=== PATIENT | male | born 1935 | race Caucasian/White ===

== ENCOUNTER 2018-12-10 10:05 | Day surgery (SDC) | payer MEDICARE, SELFPAY ==
--- NOTE | 2018-12-09 18:15 | POEE_ITS ---
History of Present Illness Chief Complaint: Progressive decreased vision, right eye Narrative: The patient is a 83-year-old male with history of amblyopia of the right eye. He has exudative maculopathy of the left eye. Corrected visual acuity measures 20/200 in the right eye in the presence of significant nuclear cataract. The option of cataract surgery was offered to the patient, including that postoperative visual acuity will be limited by the presence of her pre- existing amblyopia. Visual acuity had been as good as 20/70 in the right eye. He desired to proceed with cataract surgery in the right eye, understanding that postoperative visual acuity will be limited by his pre-existing amblyopia. NOTE: The Chief Complaint, HPI, Past Medical History, Past Surgical History, Family History, Social History, Medications, and complete Ophthalmic Exam with detailed Assessment and Plan have already been documented in the patient's outpatient ophthalmic record and are not covered again in detail here. PFSH Medical History Aortic aneurysm (Chronic) Cataract (Chronic) Coronary artery disease (Chronic) Glaucoma (Chronic) High cholesterol (Chronic) Hypertension (Chronic) Myocardial infarction (Chronic) Surgical History History of coronary artery stent placement (Chronic) History of tonsillectomy (Chronic) Social History Smoking/Tobacco Use Status: Former Tobacco Use Alcohol Intake: never Drug use: Never Substance use type: does not use Details: Quit smoking 2007 Do you feel safe at home: Yes Meds Home Medications Medication Instructions Recorded Confirmed Type losartan 100 mg PO DAILY 01/13/14 12/04/18 History metoprolol succinate 100 mg PO DAILY 01/13/14 12/04/18 History amlodipine 5 mg PO DAILY 09/19/18 12/04/18 History aspirin 81 mg PO DAILY 09/19/18 12/04/18 History atorvastatin 20 mg PO QHS 09/19/18 12/04/18 History nitroglycerin [Nitrostat] 0.4 mg SUBLINGUAL Q5-15M PRN 09/19/18 12/04/18 History vit C,Q-Nc-exwge-lutein-zeaxan 1 tab PO BID 09/19/18 12/04/18 History Allergies Allergy/AdvReac Type Severity Reaction Status Date / Time Iodinated Contrast- Oral and AdvReac Intermediate Dizzy, Verified 12/04/18 14:05 IV Dye stomach burning Sulfa (Sulfonamide AdvReac Unknown Verified 12/04/18 14:05 Antibiotics) Exam OCULAR EXAM:: Most recent ocular examination is significant for corrected visual acuity of 2o/300 OD, 20/60 OS. Extraocular motility is normal. He is noted to have deep orbits. Intraocular pressure is 17 OD, 18 OS. Pupils dilated to 6.5 mm. 3+ brunescent nuclear cataracts are present OU. Dilated funduscopic examination shows disc cupping of 0.45 OU with normal vessels. RPE changes are present in both maculas. Peripheral retina and vitreous is normal OU. BRIGHTNESS ACUITY TESTING (BAT):: Brightness acuity testing of the right eye office is 20/300. On low is 20/400. On medium and high is less than 20/400. Assessment and Plan (1) Nuclear sclerotic cataract of right eye: Current visit: No Status: Acute Assessment: Visually significant cataract, right eye. Plan: Cataract extraction with intraocular lens implantation, right eye Note: NOTE:: The details of the planned surgery, including the risks, indications,limitations,expectations,outcome and possible complications were explained to the patient. The patient understands the complications including, but not limited to: infection, hemorrhage, posterior dislocation of the lens or nuclear fragments which may require the intervention of a vitreoretinal surgeon, possible loss of the eye, or from anesthetic complications. The patient has been made aware of the option of not having surgery, that vision following surgery may not be equal to that prior to surgery, and that the planned surgery may not achieve the intended results. Following this discussion, which the patient appeared to understand, the patient wishes to proceed with cataract surgery with lens implantation of the affected eye to improve and maximize vision.
[2018-12-10 10:31] VITALS: BP 128/69; PULSE 68; RESP 16; TEMP 36.2; O2SAT 97
[2018-12-10] MEDS: Tetracaine 0.5% 4 ML BTL OD ×5 (10:36→11:58)
[2018-12-10] MEDS: Tropicam./Phenyleph. (1/2.5%) 5 ML BTL OD ×3 (10:37→10:43)
[2018-12-10] MEDS: Povidone-Iodine Ophth 30 ML BTL ×2 (11:46→12:14)
[2018-12-10] MEDS: Lidocaine 2% Jelly 6 ML SYR (11:46)
[2018-12-10] MEDS: Balanced Salt Soln.-PLUS 500 ML BAG (11:52)
[2018-12-10] MEDS: Duovisc Viscoelastic System EACH 1 EACH (11:52)
[2018-12-10] MEDS: Lidocaine 1% Pres-Free 5 ML VIAL (11:52)
--- NOTE | 2018-12-10 12:19 | W.PM.DSUDISC ---
Discharge Plan Disposition Patient Disposition: HOME Condition: Stable Discharge Details Attending Provider: Jeremy Robles Primary Care Provider: Racheal David Home Meds and New Rx's Prescriptions: No Action metoprolol succinate 100 MG tablet extended release 24 hr 100 mg PO DAILY RF: 0 losartan 100 MG tablet 100 mg PO DAILY RF: 0 atorvastatin 20 mg Tablet 20 mg PO QHS RF: 0 amlodipine 5 mg Tablet 5 mg PO DAILY RF: 0 aspirin 81 mg Tablet,Delayed Release (Dr/Ec) 81 mg PO DAILY RF: 0 nitroglycerin [Nitrostat] 0.4 mg Tablet, Sublingual 0.4 mg SUBLINGUAL Q5-15M PRNRF: 0 vit C,K-Nn-rftvk-lutein-zeaxan [phone] wr-npzs-dj-mg Capsule 1 tab PO BID RF: 0 Discharge Instructions Stand Alone Forms: Post-op Topical Cataract, Romain Mckoy (DSU) Discharge Orders Discharge Orders: Discharge Order (Routine); Ordered 12/10/18 Ordered By: Jeremy Robles DS: Diagnosis Discharge Diagnosis (1) Nuclear sclerotic cataract of right eye: Status: Resolved
--- NOTE | 2018-12-10 12:21 | W.PM.OP ---
Date of service: 12/10/18 Time of Service: 12:21 Operative Note PRE-OP DIAGNOSIS: Cataract, right eye PROCEDURE: Cataract extraction using phacoemulsification with intraocular lens implant, right eye SURGEON: Jeremy Robles ANESTHESIA: MAC and local (sub-tenon's anesthetic infiltration) ESTIMATED BLOOD LOSS: 0 PATHOLOGY: none sent COMPLICATIONS: None Patient was transported to: same day Patient's condition: stable Implants: [employer] / [employer] Tecnis ZCB00 intraocular lens Indications: Progressive decreased vision due to cataract, right eye Procedure Description: CATARACT SURGERY OPERATIVE REPORT PREOPERATIVE DIAGNOSIS: Nuclear cataract, right eye Amblyopia, right eye POSTOPERATIVE DIAGNOSIS: Same OPERATION: Cataract extraction using phacoemulsification with posterior chamber intraocular lens implant, right eye. IOL: IOL Master Dyer/Model: [employer] / RADHA Tecnis ZCB00 IOL Power: + 28.0 diopters IOL Serial Number: [id number] Optic Diameter: 6.0mm Haptic/Overall Diameter: 13.0mm PHACO INFO: Josh Neokineticsurion Vision System with OZil and Active [employer]uidics Cumulative Dispersed Energy (CDE): 17.18 seconds SURGEON: Jeremy Robles MD, VERN ANESTHESIA: Monitored Anesthesia Care (MAC), with local sub-tenon's anesthetic infiltration COMPLICATIONS: None SPECIMENS: None INDICATIONS FOR PROCEDURE: Patient is an 83-year-old gentleman with history of hyperopic astigmatism of the right eye with amblyopia of the right eye. 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 PROCEDURE: The correct surgical eye was identified and marked as the right eye and the pupil was dilated in the preoperative area using mydriatics and cycloplegics. The dilated pupil size was 6.5 mm. Oral sedation was administered in the form of an Imprimis MKO Melt (midazolam 3mg/ketamine 25mg/ondansetron 2mg). The patient was brought to the operating room where cardiopulmonary monitoring was instituted and surgical time-out was performed, confirming the correct operative eye and IOL power. Topical anesthesia was administered and ophthalmic povidone-iodine 5% was instilled into the conjunctival fornices. Lidocaine gel was applied to the cornea and the darryl-ocular area was prepped with Betadine 10% solution and draped in the usual sterile fashion for intraocular surgery, including an aperture drape. A Tegaderm transparent film dressing was cut in half and used to cover the lashes and lid margins. Care was taken to sequester the lashes and lid margins under the Tegaderm dressing. A lid speculum was placed between the lids of the operative eye and the Rocky-Herbert operating microscope was maneuvered into position. Gwendolyn scissors were then used to make a conjunctival buttonhole approximately 6mm posterior to the limbus in the inferonasal quadrant. Blunt dissection was carried out to expose bare sclera, and a blunt-tipped sub-tenon?s anesthesia cannula was introduced and passed posteriorly along the globe where non-preserved plain lidocaine was injected into posterior sub-Tenon?s space. A sideport knife was used to make a paracentesis port inferiortemporally, and the anterior chamber was filled with Viscoat. A 2.4mm keratome knife was used to create a half-thickness groove at the limbus and then to construct a three-plane near-clear corneal tunnel extending 2.0mm into clear cornea in the superiortemporal position. . A flap was raised on the anterior capsule and capsulorhexis forceps were used to complete a continuous curvilinear capsulorhexis of 5.0 mm. Balanced salt solution was then used to perform cortical cleaving hydrodissection and nuclear hydrodelineation until the lens could be freely rotated within the capsular bag. The lens nucleus was then disassembled and removed within the capsular bag and iris plane using phacoemulsification. Residual cortical material was removed using the I/A handpiece. The posterior capsule was carefully polished to remove as much residual lens epithelial cells as safely possible. The capsular bag was then inflated and the anterior chamber deepened with Provisc. The lens implant described above was inserted into the capsular bag using the RADHA [employer] [employer] Injector. A Kuglen hook was used to dial the IOL into position. Residual viscoelastic was then removed first from posterior to the IOL, then from the anterior chamber using the I/A handpiece. The lens implant was noted to center nicely within the capsular bag. The incisions were stromally hydrated, and the anterior chamber was reformed using BSS. Then 0.4cc of moxifloxacin 1.5mg/ml were injected into the capsular bag and anterior chamber. The incisions were checked with a Weck spear and found to be secure. Several drops of ophthalmic povidone-iodine 5% were then applied to the eye followed by two drops of Imprimis combination prednisolone/gatifloxacin/bromfenac solution. The drapes were removed and a clear plastic protective eye shield was placed over the eye. The patient was then returned to [facility] Day Surgery in stable condition.
[2018-12-10 12:49] VITALS: BP 97/59; PULSE 78; RESP 16; TEMP 36; O2SAT 92
== END 2018-12-10 12:50 | disposition home or self-care (01) ==
PROVIDERS: PCP Internal Medicine Geriatric Medicine; Visit Provider Ophthalmology
PROC: (CPT 66984; principal; 2018-12-10 12:30)
DX: H25.11 Age-related nuclear cataract, right eye (principal); H53.001 Unspecified amblyopia, right eye; I10 Essential (primary) hypertension
CPT/HCPCS: 66984; V2632

== ENCOUNTER 2021-02-23 09:39 | Emergency (ER) | payer MEDICARE, SELFPAY ==
[2021-02-23] VITALS (28 sets, daily range): BP systolic 106–184; BP diastolic 49–100; PULSE 73–102; RESP 16; TEMP 36.5; O2SAT 93–99
--- NOTE | 2021-02-23 09:59 | W.ED.GENAD ---
Discharge Plan Disposition Patient Disposition: [facility] Condition: Stable Discharge Details Chief Complaint: Urinary Clinical Impression: Gross hematuria Primary Care Provider: Racheal David ED Provider: Eduard Alejandro Home Meds and New Rx's Prescriptions: No Action metoprolol succinate 100 MG tablet extended release 24 hr 100 mg PO DAILY RF: 0 losartan 100 MG tablet 100 mg PO DAILY RF: 0 atorvastatin 20 mg Tablet 20 mg PO QHS RF: 0 amlodipine 5 mg Tablet 5 mg PO DAILY RF: 0 aspirin 81 mg Tablet,Delayed Release (Dr/Ec) 81 mg PO DAILY RF: 0 nitroglycerin [Nitrostat] 0.4 mg Tablet, Sublingual 0.4 mg SUBLINGUAL Q5-15M PRNRF: 0 vit C,J-Mb-agdsl-lutein-zeaxan [phone] oi-prps-of-mg Capsule 1 tab PO BID RF: 0 acetaminophen 500 mg Tablet 1,000 mg PO Q6H PRNRF: 0 Medical Decision Making 86 yo male with hx of htn, who had bladder tumor removal at [facility] [place] on 02/11 per his report and had been doing well, urinated normally aroud 2am and then around 7am started to have blood in his urine and couldn't urinate much out. He denies fevers, chills, abdomen pain, back pain, n/v. He does have blood at the end of the meatus coming from the urethra. HE has no abdomen tenderness, no scrotal swelling, suspect he had scar tissue or a scab from the surgery that fell off. I reviewed his note from [facility] [place] and he had bleeding after the surgery requiring CBI and had his mahoney removed last week in follow up. On bladder scan has over 500cc of urine. Discussed with patient and advised we will need to flace a mahoney and likely CBI again. He is in agreement with the plan. patient had mahoney placed without issues, had it irrigated continuously and despite this still has ull blood, has no abdomen tenderness on exam. Discussed with Dr. Bowers, urologist at [facility] [place] who agrees with CBI and they accept for admission their given the recent procedure. Pt updated and agrees with plan Differential Diagnosis Differential Diagnosis: post of bleeding, uti HPI General Mode of arrival: ambulatory. Date/Time Provider Initiated Documentation: 02/23/21 09:52. Limitations to Documentation: no limitations. Information obtained by: patient. History of Present Illness 86 year old M presents to the emergency department with the chief complaint of urinating blood, described as moderate, Patient started experiencing this hour(s) (2) and it has been constant. No relieving factors improve symptom(s), No exacerbating factors reported . Related Data Home Medications Medication Instructions Recorded Confirmed losartan 100 mg PO DAILY 01/13/14 02/23/21 metoprolol succinate 100 mg PO DAILY 01/13/14 02/23/21 amlodipine 5 mg PO DAILY 09/19/18 02/23/21 aspirin 81 mg PO DAILY 09/19/18 02/23/21 atorvastatin 20 mg PO QHS 09/19/18 02/23/21 nitroglycerin [Nitrostat] 0.4 mg SUBLINGUAL Q5-15M PRN 09/19/18 12/04/18 vit C,H-Gp-rohvb-lutein-zeaxan 1 tab PO BID 09/19/18 02/23/21 acetaminophen 1,000 mg PO Q6H PRN 02/23/21 02/23/21 Allergies Allergy/AdvReac Type Severity Reaction Status Date / Time Iodinated Contrast Media AdvReac Intermediate Dizzy, Verified 02/23/21 09:50 [Iodinated Contrast- Oral stomach and IV Dye] burning Sulfa (Sulfonamide AdvReac Unknown Verified 02/23/21 09:50 Antibiotics) General Stated Complaint: Urinary TERENCE: 3 Review of Systems All systems reviewed & are unremarkable except as noted in HPI and below Constitutional Constitutional: Denies chills, Denies fever(s) and Denies weakness Cardiovascular Cardiovascular: Denies chest pain and Denies dyspnea Respiratory Respiratory: Denies cough and Denies dyspnea Gastrointestinal Gastrointestinal: Denies abdominal pain, Denies nausea and Denies vomiting Musculoskeletal Musculoskeletal: Denies joint swelling Neurologic Neurologic: Denies weakness PFSH Medical History (Updated 02/23/21 @ 13:40 by Eduard Alejandro MD) Aortic aneurysm Cataract Coronary artery disease Glaucoma Bleeding OS per Pt High cholesterol Hypertension Myocardial infarction Surgical History (Updated 12/10/18 @ 12:20 by Jeremy Robles MD) History of coronary artery stent placement History of tonsillectomy Social History Smoking/Tobacco Use Status: Former Tobacco Use Smoking risk assessment performed?: Yes Alcohol Intake: never Drug use: Never Substance use type: does not use Details: Quit smoking 2006 Do you feel safe at home: Yes Do you feel safe in your relationship?: Yes Exam Const General: no acute distress Orientation: alert HENMT Head: normal to inspection Ears: external ears normal General nose exam: external nose normal Mouth: moist mucous membranes Eyes General: appearance normal, both eyes and all related structures Neck Neck: normal visual inspection Resp Effort & Inspection: normal respiratory effort and able to speak in complete sentences Cardio Rate: regular rate General: No CVA tenderness Skin General skin exam: no rashes or lesions noted Neuro General: patient alert and patient oriented x3 Extrem General: normal to inspection Psych Mental Status: mental status grossly normal Course Vital Signs Vital signs: Vital Signs Temperature 36.5 C 02/23/21 09:40 Pulse 94 H 02/23/21 09:40 Blood Pressure 157/66 H 02/23/21 09:40 Pulse Oximetry 95 02/23/21 09:40 Temperature 36.5 C 02/23/21 09:40 Temperature Source Skin 02/23/21 09:40 Pulse 94 H 02/23/21 09:40 Respiratory Effort Non-Labored 02/23/21 09:54 Blood Pressure 157/66 H 02/23/21 09:40 Pulse Oximetry 95 02/23/21 09:40 Oxygen Delivery Method Room Air 02/23/21 09:40 Oxygen Flow Rate 0 02/23/21 09:40 Pain Level 9 02/23/21 09:58
[2021-02-23] MEDS: Lidocaine 2% Jelly 6 ML SYR (10:38)
[2021-02-23] MEDS: fentaNYL 100 MCG/2 ML VIAL 50 MCG IVP (10:42)
[2021-02-23 12:16] LABS: HGB 10.2 g/dL (13.5-17.5); MCH 30.3 pg (27.0-33.0); MCHC 32.9 % (32.0-36.0); MPV 8.4 fL (8.0-11.0); Platelet Count 197 10^3/uL (130-400); RBC 3.37 10^6/uL (4.36-5.78); RDW-SD 43.7 fL; WBC 12.08 10^3/uL (4.4-10.8)
[2021-02-23 14:59] LABS: HCT 34.2 % (40.0-50.0); HGB 11.2 g/dL (13.5-17.5); MCH 30.1 pg (27.0-33.0); MCHC 32.7 % (32.0-36.0); MCV 91.9 fL (80-95); MPV 8.9 fL (8.0-11.0); Platelet Count 247 10^3/uL (130-400); RBC 3.72 10^6/uL (4.36-5.78); RDW-SD 43.5 fL; WBC 14.01 10^3/uL (4.4-10.8)
[2021-02-23] MEDS: Ondansetron 4 MG/2 ML VIAL IVP (15:09)
[2021-02-23] MEDS: HYDROmorphone 2 MG/ML VIAL 0.5 MG IVP (15:09)
[2021-02-23] MEDS: Normal Saline 50 ML 200 ML (15:10)
== END 2021-02-23 15:48 | disposition short-term general hospital (02) ==
PROVIDERS: Emergency Provider Emergency Medicine; PCP Internal Medicine Geriatric Medicine
DX: R31.0 Gross hematuria (principal)
CPT/HCPCS: 51702; 85027; 96374; 96375; 99285; 81003; 87086; J2405; J3010

== ENCOUNTER 2021-03-01 13:48 | Emergency (ER) | payer MEDICARE, SELFPAY ==
[2021-03-01 13:52] VITALS: BP 161/70; PULSE 77; RESP 18; O2SAT 96
--- NOTE | 2021-03-01 14:00 | RT.EKG_ITS ---
APPROVED REPORT Exam: Resting ECG Reason for Exam: Syncope Patient Location: E HR:72 bpm ECG Measurements Heart Rate 72 AXIS OR 159 P 97 QRSd 89 QRS 72 QT 390 T 74 QTc 426 Conclusion Sinus rhythm...normal P axis, V-rate 60- 99 Atrial premature complex...SV complex w/ short R-R interval
--- NOTE | 2021-03-01 14:04 | ED.GENADUL_ITS ---
Discharge Plan Disposition Patient Disposition: STILL A PATIENT Condition: Stable Discharge Details Clinical Impression: Abdominal pain Primary Care Provider: Racheal David ED Provider: Maryanne Lo Home Meds and New Rx's Prescriptions: New ondansetron HCl [Zofran] 4 mg tablet 4 mg PO Q8H PRN (Reason: nausea and vomiting) Qty: 7 RF: 0 Continued metoprolol succinate 100 MG tablet extended release 24 hr 100 mg PO DAILY RF: 0 losartan 100 MG tablet 100 mg PO DAILY RF: 0 atorvastatin 20 mg Tablet 20 mg PO QHS RF: 0 amlodipine 5 mg Tablet 5 mg PO DAILY RF: 0 nitroglycerin [Nitrostat] 0.4 mg Tablet, Sublingual 0.4 mg SUBLINGUAL Q5-15M PRNRF: 0 vit C,A-Vp-jnlou-lutein-zeaxan [id number] qm-dlzs-jf-mg Capsule 1 tab PO BID RF: 0 acetaminophen 500 mg Tablet 1,000 mg PO Q6H PRNRF: 0 No Action aspirin 81 mg Tablet,Delayed Release (Dr/Ec) 81 mg PO DAILY RF: 0 Discharge Instructions Instructions: Acute Nausea and Vomiting (ED), Abdominal Pain (ED) Additional Instructions: Please take the nausea medication as Zofran approximately 20 minutes before meals up to 3 times daily as needed for nausea and vomiting. Follow up with primary care provider in 3-5 days. Return to ED sooner if any worsening pain, fever, or concerns. Increase oral fluids. Referrals: Racheal David [Primary Care Provider] - Discharge Data Discharge Date/Time-TO BE ENTERED AT DEPARTURE: 03/01/21 17:21 Medical Decision Making <BONNIE Flores - Last Filed: 03/03/21 16:34> 86-year-old gentleman, SUNITA on 02-11, seen in our ER on 02-23 for hematuria, subsequently transferred to [facility] for clot evacuation. Now decreased appetite, bowel movements, and abdominal cramping for the past 2 days, sent to the ER for evaluation for potential small bowel obstruction. Clinically he appears well, nontoxic, denies any abdominal pain. He is still passing gas. Denies any dysuria or hematuria. He reports that after having a shower this morning he did feel a little weak. Given his past medical history and overall presentation will obtain IV access, CBC, CMP, urinalysis, single troponin and EKG although low suspicion for acute ACS, pneumonia, etc. Will provide IV fluids in the meantime as well. Will obtain CT imaging of his abdomen pelvis without contrast given his allergies. Given his lack of discomfort now, ability to tolerate p.o. intake, passing gas, loose bowel movement, low suspicion for acute bowel obstruction. White blood cell count of 11.27, minimally elevated which is also noted to be lower than his previous to blood draws. Hemoglobin 10.5 hematocrit 33.1 platelet count 236. CMP pending. Urinalysis reveals trace blood, negative nitrate. Trace leukoesterase, 3-5 red cells, 5-10 white cells, few epithelials, negative bacteria. Culture indicated. CMP unremarkable for obvious emergent process Awaiting CT CT with multiple nonspecific findings, none appear to be acute. Somewhat prominent right renal pelvis. Urinary bladder is thickened, recommend outpatient cystoscopy. Extensive sigmoid diverticulosis, no obvious diverticulitis that would be easy to miss given the extent Clinically, fairly low suspicion for acute diverticulitis. Patient reports no pain whatsoever. He is afebrile. Continues to have decreased appetite. He is able to follow-up with urology as an outpatient for the other incidental findings. Concerned that he may not be able to tolerate any p.o. intake. Patient would also like to be discharged home but is concerned about his current lack of appetite. Will attempt to p.o. trial and then reassess Medical Records Medical records reviewed: Yes I reviewed the patient's medical records. Imaging Data Radiologic Study: Attestation: I personally reviewed and interpreted this imaging study as follows: Imaging: CT Scan Radiologist's impression: EXAM CT ABDOMEN PELVIS WO CLINICAL HISTORY [ Recent TURP, decrease bm and appetite. ] [] TECHNIQUE Imaging Protocol: Axial computed tomography images with coronal and sagittal reformatted images were created and reviewed CONTRAST MATERIAL Intravenous: none Oral: [None] COMPARISON [No exams were available for comparison][] FINDINGS VISUALIZED LUNG BASES: [No nodules nor pleural effusions evident]. [] ABDOMEN: [There is no ascites.] LIVER: [There are no obvious focal hepatic lesions evident of this noninfused study.] [] GALLBLADDER/BILIARY: [No obvious gallbladder pathology.] [CBD is not dilated.] PANCREAS: [No evidence of pancreatic mass nor dilatation of the pancreatic duct.] SPLEEN: [Spleen is not enlarged. No obvious intrasplenic lesions.] ADRENALS: [There are no significant adrenal masses.] KIDNEYS:[There are 3 exophytic cysts off the] [lateral cortex of the left kidney. Largest of these measures 3 by 2.9]. An additional cyst measuring 2 cm is seen in the inferior pole. In the opposite-right kidney there is a 1.5 cm cyst inferior pole. Prominent right renal pelvis. Right ureter is not dilated. Urinary bladder wall is diffusely thickened. Prostate gland is enlarged. ABDOMINAL AORTA: [Aortic EVAR place. Cannot assess for leak without IV contrast. However, the [place] sac is only minimally larger than. No fluid collections around the anastomosis] LYMPH NODES: [There is no retroperitoneal nor paraaortic adenopathy.] ABDOMINAL WALL: [No evidence of significant anterior abdominal wall hernia.] GI: [There is no evidence of bowel obstruction, free air, nor abscess.] [] PELVIS: LYMPH NODES: [There is no intrapelvic nor inguinal adenopathy.] GI: [No evidence of appendicitis.][There is very extensive diverticulosis of the descending-left colon and sigmoid. Cannot exclude subtle diverticulitis. No abscess seen. 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 No listhesis. No lytic osseous lesions evident.] [] IMPRESSION 1. [Somewhat prominent right renal pelvis without caliectasis. Ureter below this level is not dilated.] 2. [Benign cysts in the opposite-left kidney. No solid renal masses.] 3. [Urinary bladder wall is thickened, this somewhat more so on the left than the right side and cystoscopy is recommended to rule out neoplasm. The prostate gland is not enlarged.] 4. Extensive sigmoid diverticulosis. It would possible to miss acute diverticulitis here given the extensive involvement of the sigmoid with diverticuli. [4. Aortic EVAR noted. This cannot be studied for leaks without IV contrast. No obvious abnormal fluid collections in this vicinity. Lab Data Lab results reviewed: Yes I reviewed the patient's lab results. Labs: 03/01/21 14:35 Urine - Reflex from Ua Urine Culture - Pending Laboratory Tests Range/Units 03/01/21 03/01/21 03/01/21 14:35 14:50 14:50 WBC (4.4-10.8) 10^3/uL 11.27 H RBC (4.36-5.78) 10^6/uL 3.51 L Hgb (13.5-17.5) g/dL 10.5 L Hct (40.0-50.0) % 33.1 L MCV (80-95) fL 94.3 MCH (27.0-33.0) pg 29.9 MCHC (32.0-36.0) % 31.7 L RDW (11.8-14.1) % 13.3 Plt Count (130-400) 10^3/uL 236 MPV (8.0-11.0) fL 8.8 Immature Gran % 0.4 Neutrophils % 91.0 Lymphocytes % 4.0 Monocytes % 4.1 Eosinophils % 0.4 Basophils % 0.1 Nucleated RBC % % 0 Absolute Neutrophils (1.2-6.7) 10^3/uL 10.26 H Absolute Lymphocytes (1.2-3.4) 10^3/uL 0.45 L Absolute Monocytes (0.1-0.8) 10^3/uL 0.46 Absolute Eosinophils (0.0-0.7) 10^3/uL 0.05 Absolute Basophils (0.0-0.2) 10^3/uL 0.01 Sodium (136-145) mmol/L 137 Potassium (3.5-5.1) mmol/L 4.6 Chloride (98-107) mmol/L 100 Carbon Dioxide (21.0-32.0) mmol/L 30.7 Anion Gap (3-11) mmol/L 6.3 BUN (7-18) mg/dL 22 H Creatinine (0.70-1.30) mg/dL 1.3 Estimated GFR/1.73 m2 (mL/min/1.73m2) 52.47 Glucose (74-106) mg/dL 120 H Calcium (8.5-10.1) mg/dL 9.0 Total Bilirubin (0.2-1.0) mg/dL 0.4 AST (15-37) U/L 21 ALT (16-63) U/L 27 Alkaline Phosphatase (46-116) U/L 101 Total Protein (6.4-8.2) g/dL 7.0 Albumin (3.4-5.0) g/dL 3.5 Urine Color (Yellow) Yellow Urine Clarity (Clear) Clear Urine pH (5-8) 7.0 Ur Specific [place] (1.005-1.025) 1.020 Urine Protein (Negative) mg/dL 30 H Urine Ketones (Negative) mg/dL Negative Urine Blood (Negative) Trace-intact H Urine Nitrite (Negative) Negative Urine Bilirubin (Negative) Negative Urine Urobilinogen (Up TO 0.2) EU/dL 0.2 Ur Leukocyte Esterase (Negative) Trace H Urine RBC (0-2) HPF 3-5 H Urine WBC (0-5) HPF 5-10 Ur Epithelial Cells (Negative) HPF Few Urine Crystals (Negative) HPF Negative Urine Bacteria (Negative) HPF Few Urine Casts (Negative) LPF Negative Urine Mucus (Negative) Trace Ur Culture Indicated? Yes Urine Glucose (Negative) mg/dL Negative ECG Data Attestation: I personally reviewed and interpreted this ECG (s) as follows: Interpretation: Please see official report by Dr. Estrada. Sinus rhythm, ventricular of 72. No STEMI <Maryanne Lo - Last Filed: 03/01/21 18:05> 1630: Care assumed from provider (BONNIE Burch) Please see their initial HPI, PE, and documentation. Discussed patient details and case and pending workup and disposition. Patient is hemodynamically stable, and alert and oriented. At this time we are awaiting p.o. challenge and reassessment. In short this is a 6-year-old male who presented with some complaints of nonspecific dizziness and generally feeling unwell status post a TURP procedure and clot extraction recently within the last week at [facility], constipation and abdominal cramping. Work-up at this time is nonspecific findings. 1702: Patient has taken crackers and peanut butter at this time without any vomiting. Discussed home care with patient and significant other verbalized understanding. At this time we will send patient home with Zofran for nausea vomiting and strict return instructions discussed follow-up with primary care provider. Patient was ambulatory prior to discharge no vomiting no complaints of abdominal pain at this time. HPI <BONNIE Flores - Last Filed: 03/03/21 16:34> General Mode of arrival: EMS . Date/Time Provider Initiated Documentation: 03/01/21 13:53 . Limitations to Documentation: no limitations . Information obtained by: patient and EMS . HPI Narrative: This is an 86 year old male with history of htn, who had bladder tumor removal at [facility] on 02/11, subsequently seen in our ER on 02-23 for hematuria, subsequently transferred to [facility] that day for clot evacuation, discharged 3 days later, was doing well but now presents to the ER complaining of intermittent abdominal cramping, decreased appetite, p.o. intake, and no bowel movement since 02-26. Patient describes the cramping is intermittent, none now, he is currently reporting generalized weakness and fatigue but denies any pain. Patient states that he took a shower this morning around 11:00 and after the shower had increased g eneral weakness and felt off balance because of his weakness but no dizziness like the room was spinning. Patient subsequently contacted his primary care provider and was sent to the ER for CT imaging of the abdomen pelvis for further evaluation of his symptoms, rule out potential small bowel obstruction. Patient denies fever, chest pain, shortness of breath, current nausea but does report vomiting once earlier today. Patient reports decreased p.o. intake today because of this. He denies any dysuria or hematuria. Denies bright red blood in stools or black tarry stools. Patient states that he is still able to pass gas and occasionally has a soft bowel movement but no firm bowel movement since 02-26. Related Data Home Medications Medication Instructions Recorded Confirmed losartan 100 mg PO DAILY 01/13/14 03/01/21 metoprolol succinate 100 mg PO DAILY 01/13/14 03/01/21 amlodipine 5 mg PO DAILY 09/19/18 03/01/21 aspirin 81 mg PO DAILY 09/19/18 02/23/21 atorvastatin 20 mg PO QHS 09/19/18 03/01/21 nitroglycerin [Nitrostat] 0.4 mg SUBLINGUAL Q5-15M PRN 09/19/18 03/01/21 vit C,Y-Wk-ouppr-lutein-zeaxan 1 tab PO BID 09/19/18 03/01/21 acetaminophen 1,000 mg PO Q6H PRN 02/23/21 03/01/21 ondansetron HCl [Zofran] 4 mg PO Q8H PRN #7 tab 03/01/21 Previous Rx's Medication Instructions Recorded ondansetron HCl [Zofran] 4 mg PO Q8H PRN #7 tab 03/01/21 Allergies Allergy/AdvReac Type Severity Reaction Status Date / Time Iodinated Contrast Media AdvReac Intermediate Dizzy, Verified 03/01/21 13:58 [Iodinated Contrast- Oral stomach and IV Dye] burning Sulfa (Sulfonamide AdvReac Unknown Verified 03/01/21 13:58 Antibiotics) General Stated Complaint: Abd Prob TERENCE: 3 Review of Systems <BONNIE Flores - Last Filed: 03/03/21 16:34> Constitutional Constitutional: Reports fatigue, Denies fever(s) and Denies headache(s) ENT Ears, Nose, Mouth, and Throat: Denies headache(s) Cardiovascular Cardiovascular: Denies chest pain and Denies dyspnea Respiratory Respiratory: Denies cough and Denies dyspnea Gastrointestinal Gastrointestinal: Reports abdominal pain, Reports constipation, Denies diarrhea, Reports loose stools, Denies nausea and Reports vomiting Genitourinary Genitourinary: Denies hematuria and Denies dysuria Musculoskeletal Musculoskeletal: Denies back pain Integumentary/Breasts Skin/Breast: Denies rash Neurologic Neurologic: Denies headache(s) and Reports weakness (Generalized) Endocrine Endocrine: Reports fatigue PFSH <BONNIE Flores - Last Filed: 03/03/21 16:34> Medical History Aortic aneurysm Cataract Coronary artery disease Glaucoma Bleeding OS per Pt High cholesterol Hypertension Myocardial infarction Surgical History History of coronary artery stent placement History of tonsillectomy Social History Smoking/Tobacco Use Status: Former Tobacco Use Smoking risk assessment performed?: Yes Alcohol Intake: never Drug use: Never Substance use type: does not use Details: Quit smoking 2006 Do you feel safe at home: Yes Do you feel safe in your relationship?: Yes Exam <BONNIE Flores - Last Filed: 03/03/21 16:34> Const General: cooperative, healthy appearing, comfortable and no acute distress Orientation: alert and awake HENMT Head: normal to inspection, normocephalic and atraumatic Mouth: moist mucous membranes Eyes General: appearance normal, both eyes and all related structures Conjunctivae: conjunctivae normal Neck Neck: normal visual inspection, full ROM, trachea midline and supple Resp Effort & Inspection: normal respiratory effort and able to speak in complete sentences Auscultation: clear to auscultation bilaterally Cardio Rate: regular rate Rhythm: regular rhythm GI Inspection: normal to inspection Palpation: soft, not firm, no guarding, no pulsatile masses and nontender Auscultation: normal bowel sounds Back/Spine/Pelvis Back: No back tenderness Skin General skin exam: no rashes or lesions noted Neuro General: patient alert, patient awake, moves all extremities and no focal motor deficits Cognition: normal cognition Speech: speech normal Gait: normal gait Sensory Exam: no sensory deficits noted Extrem General: normal to inspection, full ROM, capillary refill normal, no pedal edema and no calf tenderness Psych Appearance: grossly normal Mental Status: mental status grossly normal Course <BONNIE Flores - Last Filed: 03/03/21 16:34> Vital Signs Vital signs: Vital Signs Pulse 77 03/01/21 13:52 Respiratory Rate 18 03/01/21 13:52 Blood Pressure 161/70 H 03/01/21 13:52 Pulse Oximetry 96 03/01/21 13:52 Temperature Source Temporal Artery Scan 03/01/21 13:52 Pulse 77 03/01/21 13:52 Respiratory Rate 18 03/01/21 13:52 Respiratory Effort Non-Labored 03/01/21 13:56 Blood Pressure 161/70 H 03/01/21 13:52 Blood Pressure Position Supine 03/01/21 13:52 Pulse Oximetry 96 03/01/21 13:52 Oxygen Delivery Method Room Air 03/01/21 13:52 Oxygen Flow Rate 0 03/01/21 13:52 Pain Level 6 03/01/21 13:52 Sign Out <BONNIE Flores Last Filed: 03/03/21 16:34> Sign Out Data: Sign Out Comment: Recent TURP on 02-11, clot evacuation on 02-23 at [facility], no solid bowel movement since 02-26. Intermittent abdominal discomfort but none now. Laboratory values reveal no obvious emergent process. CT with multiple incidental findings but no acute findings. Patient would eventually like to go home but is currently concerned that he may not be able to tolerate any oral intake. He does have outpatient urology follow-up. Will p.o. challenge and reassess. Last updated by Hernandez De Luna PA at 03/01/21 16:15
--- NOTE | 2021-03-01 14:30 | DI.CT_ITS ---
Exam(s) CT ABDOMEN PELVIS WO EXAM: CT ABDOMEN PELVIS WO CLINICAL HISTORY: Recent TURP, decrease bm and appetite. TECHNIQUE: Imaging Protocol: Axial computed tomography images with coronal and sagittal reformatted images were created and reviewed CONTRAST MATERIAL: Intravenous: none Oral: None COMPARISON: No exams were available for comparison FINDINGS: VISUALIZED LUNG BASES: No nodules nor pleural effusions evident. ABDOMEN: There is no ascites. LIVER: There are no obvious focal hepatic lesions evident of this noninfused study. GALLBLADDER/BILIARY: No obvious gallbladder pathology. CBD is not dilated. PANCREAS: No evidence of pancreatic mass nor dilatation of the pancreatic duct. SPLEEN: Spleen is not enlarged. No obvious intrasplenic lesions. ADRENALS: There are no significant adrenal masses. KIDNEYS:There are 3 exophytic cysts off the lateral cortex of the left kidney. Largest of these nohemi ures 3 by 2.9. An additional cyst measuring 2 cm is seen in the inferior pole. In the opposite-righ t kidney there is a 1.5 cm cyst inferior pole. Prominent right renal pelvis. Right ureter is not di lated. Urinary bladder wall is diffusely thickened. Prostate gland is enlarged. ABDOMINAL AORTA: Aortic EVAR place. Cannot assess for leak without IV contrast. However, the [place] sac is only minimally larger than. No fluid collections around the anastomosis LYMPH NODES: There is no retroperitoneal nor paraaortic adenopathy. ABDOMINAL WALL: No evidence of significant anterior abdominal wall hernia. GI: There is no evidence of bowel obstruction, free air, nor abscess. PELVIS: LYMPH NODES: There is no intrapelvic nor inguinal adenopathy. GI: No evidence of appendicitis.There is very extensive diverticulosis of the descending-left colon a nd sigmoid. Cannot exclude subtle diverticulitis. No abscess seen. Abundant fecal material in the rectum which exhibits a diameter 8 cm. URINARY BLADDER: Thickened bladder wall almost uniformly, slightly more so on the left side. REPRODUCTIVE: Prostate not enlarged. OSSEOUS: Multilevel chronic degenerative disc disease in the lumbar spine. No listhesis. No lytic o sseous lesions evident. IMPRESSION: 1. Somewhat prominent right renal pelvis without caliectasis. Ureter below this level is not dilated . 2. Benign cysts in the opposite-left kidney. No solid renal masses. 3. Urinary bladder wall is thickened, this somewhat more so on the left than the right side and cysto scopy is recommended to rule out neoplasm. The prostate gland is not enlarged. 4. Extensive sigmoid diverticulosis. It would possible to miss acute diverticulitis here given the extensive involvement of the sigmoid with diverticuli. 4. Aortic EVAR noted. This cannot be studied for leaks without IV contrast. No obvious abnormal fl uid collections in this vicinity. 5. RADIATION DOSE DELIVERED: 588mGy.cm Total DLP DATA REPOSITORY: All CT scans at this facility are submitted to the National Radiology Data Registry (NRDR) Dose Index Registry (DIR) with the [employer] (ACR). RADIATION OPTIMIZATION: All CT scans at this facility use at least one of these dose optimization te chniques: automated exposure control; mA and/or kV adjustment per patient size (includes targeted exa ms where dose is matched to clinical indication); or iterative reconstruction.
[2021-03-01] MEDS: Normal Saline 1,000 ML 150 ML IV (14:57)
[2021-03-01 15:01] LABS: Bilirubin Negative (Negative); Blood Trace-intact (Negative); Clarity Clear (Clear); Glucose Negative (Negative); Ketones Negative (Negative); Leukocyte Esterase Trace (Negative); Nitrite Negative (Negative); Urobilinogen 0.2 EU/dL (Up TO 0.2)
[2021-03-01 15:11] LABS: Bacteria Few HPF (Negative); Crystals Negative HPF (Negative); Epithelial Cells Few HPF (Negative); Mucus Trace (Negative)
[2021-03-01 15:11] LABS: Abs Immature Grans 0.04 10^3/uL (0.0-0.06); Absolute Basophil Count 0.01 10^3/uL (0.0-0.2); Absolute Eosinophil Count 0.05 10^3/uL (0.0-0.7); Absolute Lymphocyte Count 0.45 10^3/uL (1.2-3.4); Absolute Monocyte Count 0.46 10^3/uL (0.1-0.8); Absolute Neutrophil Count 10.26 10^3/uL (1.2-6.7); Basophils % 0.1; Eosinophils % 0.4; HCT 33.1 % (40.0-50.0); HGB 10.5 g/dL (13.5-17.5); Immature Grans % 0.4; MCH 29.9 pg (27.0-33.0); MCHC 31.7 % (32.0-36.0); MCV 94.3 fL (80-95); MPV 8.8 fL (8.0-11.0); Monocytes % 4.1; Nucleated RBC 0 %; Platelet Count 236 10^3/uL (130-400); RBC 3.51 10^6/uL (4.36-5.78); RDW 13.3 % (11.8-14.1); RDW-SD 46.2 fL; WBC 11.27 10^3/uL (4.4-10.8)
[2021-03-01 15:12] LABS: C & S Indicated? Yes; Casts Negative LPF (Negative)
[2021-03-01 15:27] LABS: ALT 27 U/L (16-63); AST 21 U/L (15-37); Albumin 3.5 g/dL (3.4-5.0); Alkaline Phosphatase 101 U/L (46-116); Anion Gap 6.3 mmol/L (3-11); BUN 22 mg/dL (7-18); Bilirubin, Total 0.4 mg/dL (0.2-1.0); CO2 30.7 mmol/L (21.0-32.0); CREATININE 1.3 mg/dL (0.70-1.30); Chloride 100 mmol/L (98-107); Estimated GFR 52.47 (mL/min/1.73m2); Glucose 120 mg/dL (74-106); Potassium 4.6 mmol/L (3.5-5.1); Sodium 137 mmol/L (136-145)
[2021-03-01] MEDS: Ondansetron O.D.T. 4 MG TABEF, 3 TABS/BTL PO (17:15)
[2021-03-01 17:16] VITALS: BP 161/70; PULSE 77; RESP 18; TEMP 36.5; O2SAT 96
== END 2021-03-01 17:21 | disposition still patient (30) ==
PROVIDERS: Physician Assistant; Emergency Provider Registered Nurse Emergency; PCP Internal Medicine Geriatric Medicine
DX: R10.9 Unspecified abdominal pain (principal); R11.2 Nausea with vomiting, unspecified; R53.1 Weakness; R55 Syncope and collapse; R63.0 Anorexia
CPT/HCPCS: 36415; 80053; 93005; 96360; 96361; 99284; 74176; 81003; 81015; 84484; 85025; 87086; 93010

== ENCOUNTER → 2021-04-22 09:23 | Outpatient (BNVA) | payer MEDICARE, SELFPAY | PROVIDERS: PCP Internal Medicine Geriatric Medicine; Referring Provider Surgery; Visit Provider Urology | DX: C67.2 Malignant neoplasm of lateral wall of bladder (principal); R31.0 Gross hematuria; N39.0 Urinary tract infection, site not specified | CPT/HCPCS: 81003; 99214 ==

== ENCOUNTER 2021-04-22 15:26 | Outpatient (REF) | payer MEDICARE, SELFPAY | END 2021-04-22 15:27 | disposition home or self-care (01) | LOC: LBN 15:26 | PROVIDERS: PCP Internal Medicine Geriatric Medicine; Visit Provider Urology | DX: N39.0 Urinary tract infection, site not specified (principal); R31.0 Gross hematuria | CPT/HCPCS: 87086 ==

== ENCOUNTER → 2021-04-29 12:46 | Outpatient (BNVA) | payer MEDICARE, SELFPAY | PROVIDERS: PCP Internal Medicine Geriatric Medicine; Visit Provider Nurse Practitioner Gerontology | DX: C67.2 Malignant neoplasm of lateral wall of bladder (principal); N48.89 Other specified disorders of penis; Z51.11 Encounter for antineoplastic chemotherapy | CPT/HCPCS: 51720; 99213; J9030 ==

== ENCOUNTER → 2021-05-13 13:59 | Outpatient (BNVA) | payer MEDICARE, SELFPAY | PROVIDERS: PCP Nurse Practitioner Family; Visit Provider Urology | DX: C67.2 Malignant neoplasm of lateral wall of bladder (principal); Z51.11 Encounter for antineoplastic chemotherapy | CPT/HCPCS: 51720; J9030 ==

== ENCOUNTER → 2021-05-20 14:09 | Outpatient (BNVA) | payer MEDICARE, SELFPAY | PROVIDERS: PCP Nurse Practitioner Family; Visit Provider Urology | DX: C67.2 Malignant neoplasm of lateral wall of bladder (principal); Z51.11 Encounter for antineoplastic chemotherapy | CPT/HCPCS: 51720; 81003; J9030 ==

== ENCOUNTER → 2021-05-27 14:11 | Outpatient (BNVA) | payer MEDICARE, SELFPAY | PROVIDERS: PCP Nurse Practitioner Family; Visit Provider Urology | DX: C67.2 Malignant neoplasm of lateral wall of bladder (principal); Z51.11 Encounter for antineoplastic chemotherapy | CPT/HCPCS: 51720; 81003; J9030 ==

== ENCOUNTER → 2021-06-17 14:02 | Outpatient (BNVA) | payer MEDICARE, SELFPAY | PROVIDERS: PCP Nurse Practitioner Family; Visit Provider Nurse Practitioner Gerontology | DX: C67.2 Malignant neoplasm of lateral wall of bladder (principal); Z51.11 Encounter for antineoplastic chemotherapy | CPT/HCPCS: 51720; 81003; J9030 ==

== ENCOUNTER → 2021-06-24 14:19 | Outpatient (BNVA) | payer MEDICARE, SELFPAY ==
--- NOTE | 2021-06-24 15:27 | ANES.CON_ITS ---
General Date of Service Date of Service: 06/24/21 Reason for Consult Requesting Provider: Say Deng How Consult Conducted:: Chart Review Reason for Consult:: appropriateness for [facility]. Consult Recommendation after Review:: Since he has recently had other uro surg at [facility] and they have gone well, he is okay to proceed. Meds Allergies and Home Medications Allergies Allergy/AdvReac Type Severity Reaction Status Date / Time Iodinated Contrast Media AdvReac Intermediate Dizzy, Verified 04/22/21 09:58 [Iodinated Contrast- Oral stomach and IV Dye] burning Sulfa (Sulfonamide AdvReac Unknown Verified 04/22/21 09:58 Antibiotics) Home Medication Medication Instructions Recorded losartan 100 mg PO DAILY 01/13/14 amlodipine 5 mg PO DAILY 09/19/18 atorvastatin 20 mg PO QHS 09/19/18 nitroglycerin [Nitrostat] 0.4 mg SUBLINGUAL Q5-15M PRN 09/19/18 acetaminophen 1,000 mg PO Q6H PRN 02/23/21 ondansetron HCl [Zofran] 4 mg PO Q8H PRN #7 tab 03/01/21 metoprolol succinate 100 mg 100 mg PO DAILY 04/22/21 tablet,extended release 24 hr vit C 250 mg-vit E 90 mg-zinc 40 1 tab PO DAILY cap 04/22/21 mg-copper 1 an-gjzqie-cvteor capsule PFSH Active Problems Active Problems: Problem Status Onset Code Bladder cancer C67.9 Gross hematuria R31.0 Abdominal pain R10.9 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, dry, 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, wet, 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 Status post cataract extraction and insertion of intraocular lens of right eye 12/10/18 Z98.41, Z96.1 Medical History Medical History (Updated 05/27/21 @ 15:21 by Say Deng MD) Aortic aneurysm Cataract Coronary artery disease Glaucoma Bleeding OS per Pt High cholesterol Hypertension Myocardial infarction Surgical History Surgical History (Updated 05/27/21 @ 15:21 by Say Deng MD) H/O transurethral destruction of bladder lesion History of coronary artery stent placement History of tonsillectomy Tobacco Smoking/Tobacco Use Status: Former Tobacco Use Alcohol Alcohol Intake: never Substance Use Substance use: Never Substance use type: does not use Details: Quit smoking 2006 Vital Signs & Lab Results Point of Care Results Nursing Point of Care Results: No Data to Display Lab Results Blood Type / Crossmatch: No Data to Display Complete Blood Count: No Data to Display Complete Metabolic Panel: No Data to Display Liver Function Panel: No Data to Display Coagulation Panel: No Data to Display Cardiac Panel: No Data to Display Arterial Blood Gas: No Data to Display Venous Blood Gas: No Data to Display Pancreas Panel: No Data to Display Thyroid Panel: No Data to Display Infectious Disease: No Data to Display Blood Cultures: No Data to Display Toxicology Panel: No Data to Display Imaging and Studies Imaging and Studies Stress Test Summary: 2012 stress echo: no echo evidence of ischemia at this level of stress. LVEF 70%, mild MR, trace TR Pulmonary Function Summary: 04/2021: FEV1 and FEV1/VC are reduced, FVC is normal. severe obstruction. severe reduction in diffusing capacity (<40%), suggesting of emphysema. Anesthesia Assessment and Plan Preoperative Comments:: Sig PMHx: emphysema/COPD, epistaxis, AAA s/p endovascular repair 2012, CAD (IMI 2010, BMS to RCA), HTN, former smoker, Previous Anes: 02/24/2021: igel 5 100 mg prop/25 fent/20 lidocaine for induction. needed 240 mcg phenyl and 10 of ephedrine shortly after, and was placed on a phenyl gtt. 02/11/2021: igel 5, 4 didn't seat well. required phenyl bolus and gtt. 05/28/2013: mac 4 grade 1, easy mask.
== END ==
PROVIDERS: PCP Nurse Practitioner Family; Visit Provider Urology
DX: C67.2 Malignant neoplasm of lateral wall of bladder (principal); Z87.448 Personal history of other diseases of urinary system
CPT/HCPCS: 81003; 99213

== ENCOUNTER → 2021-07-27 13:25 | Outpatient (BNVA) | payer MEDICARE, SELFPAY | PROVIDERS: PCP Nurse Practitioner Family; Referring Provider Nurse Practitioner Family; Visit Provider Urology | DX: C67.2 Malignant neoplasm of lateral wall of bladder (principal) | CPT/HCPCS: 99443 ==

== ENCOUNTER → 2021-08-20 11:02 | Outpatient (BNVA) | payer MEDICARE, SELFPAY | PROVIDERS: PCP Nurse Practitioner Family; Referring Provider Nurse Practitioner Family; Visit Provider Urology | DX: C67.2 Malignant neoplasm of lateral wall of bladder (principal) | CPT/HCPCS: 99213 ==

== ENCOUNTER 2021-08-20 13:13 | Outpatient (REF) | payer MEDICARE, SELFPAY ==
--- NOTE | 2021-08-20 11:15 | PAPNONF_PTH ---
PATIENT: Pan Reyez LOC: [facility] U#:[id number] AGE/SX: 86/M ROOM: RE08/20/[address]: Say Deng MD : 1935 BED: DIS: 08/20/2021 SPEC #: [id number] RECD: 08/20/21 18:00 STATUS: MICAELA REQ #: [id number] MOSHE: 08/20/21 11:[address]: Say Deng DEPT: [facility] Cytology RECD BY: Gabriela Ragsdale ENTERED: 08/20/21 18:01 SP TYPE: DEE FIELDS DR: Janice Laughlin Tissues: 1 - BODY FLUID CYTO(SPUTUM/URINE)[facility] Procedures: BODY FLUID CYTO(URINE/SPUTUM) Comments: [id number] (TOTAL VOLUME = 60 ml) (30 ml URINE & 30 ml CYTOLYT ADDDED IN 2 CONTAINERS)
== END 2021-08-20 13:14 | disposition home or self-care (01) ==
LOC: LBN 13:13
PROVIDERS: PCP Nurse Practitioner Family; Visit Provider Urology
DX: C67.9 Malignant neoplasm of bladder, unspecified (principal)
CPT/HCPCS: 88104

== ENCOUNTER → 2021-11-16 14:06 | Outpatient (BNVA) | payer MEDICARE, SELFPAY | PROVIDERS: PCP Nurse Practitioner Family; Referring Provider Nurse Practitioner Family; Visit Provider Urology | DX: C67.2 Malignant neoplasm of lateral wall of bladder (principal) | CPT/HCPCS: 81003; 99213 ==

== ENCOUNTER 2021-11-16 15:21 | Outpatient (REF) | payer MEDICARE, SELFPAY ==
--- NOTE | 2021-11-16 15:10 | PAPNONF_PTH ---
PATIENT: Pan Reyez LOC: [facility] U#:[id number] AGE/SX: 86/M ROOM: RE11/16/[address]: Say Deng MD : 1935 BED: DIS: 11/16/2021 SPEC #: [id number] RECD: 11/16/21 18:33 STATUS: MICAELA REQ #: [id number] MOSHE: 11/16/21 15:[address]: Say Deng DEPT: [facility] Cytology RECD BY: Gabriela Ragsdale ENTERED: 11/16/21 18:34 SP TYPE: DEE FIELDS DR: Janice Laughlin Tissues: 1 - BODY FLUID CYTO(SPUTUM/URINE)[facility] Procedures: BODY FLUID CYTO(URINE/SPUTUM) Comments: [id number] (TOTAL VOLUME = 25 ml) (25 ml URINE & 25 ml CYTOLYT ADDED)
== END 2021-11-16 15:22 | disposition home or self-care (01) ==
LOC: LBN 15:21
PROVIDERS: PCP Nurse Practitioner Family; Visit Provider Urology
DX: C67.9 Malignant neoplasm of bladder, unspecified (principal); R82.89 Other abnormal findings on cytological and histological examination of urine; R82.998 Other abnormal findings in urine
CPT/HCPCS: 88104

== ENCOUNTER → 2022-01-11 01:18 | Outpatient (CLI) | payer MEDICARE, SELFPAY ==
--- NOTE | 2022-01-11 | DI.CT_ITS ---
Exam(s) CT CHEST WO EXAM: CT CHEST WO CLINICAL HISTORY: F/U NODULE TUYET LT, R91.1,RESTAGING EXAM. TECHNIQUE: Multi planar reconstructions were performed. CONTRAST MATERIAL: None COMPARISON: CR CHEST 2 VIEWS PA,LAT from 08/14/2014 FINDINGS: CHEST: LUNGS: Bilateral emphysematous changes in the lung [place]. Benign-appearing scarring in the sub apic al regions of both upper lobes.. No confluent infiltrates nor pleural effusions. No pulmonary edema . No pneumothorax. No significant focal findings in the trachea and mainstem bronchi MEDIASTINUM: There is no obvious hilar nor mediastinal adenopathy. No obvious axillary adenopathy CARDIAC: Heart size is normal. There is no pericardial effusion.Caliber thoracic aorta is slightly p rominent. Ascending thoracic aorta diameter 3.9 cm. Aortic arch diameter is 3 cm. Diameter of the proximal descending thoracic aorta is 3.2 cm. Diameter of the lower descending thoracic aorta is 3 c m. VISUALIZED UPPER ABDOMEN:Partially included cyst in the upper pole of the left kidney measuring 1.8 c m. OSSEOUS: No significant osseous lesions.No fractures.. IMPRESSION: 1. COPD-emphysematous changes. Sub apical scarring both lungs. 2. No confluent infiltrates nor pleural effusions. No intrathoracic adenopathy. 3. Slightly prominent diameter of the thoracic aorta, with measurements as above. RADIATION DOSE DELIVERED: 355.52mGy.cm Total DLP DATA REPOSITORY: All CT scans at this facility are submitted to the National Radiology Data Registry (NRDR) Dose Index Registry (DIR) with the [employer] (ACR). RADIATION OPTIMIZATION: All CT scans at this facility use at least one of these dose optimization te chniques: automated exposure control; mA and/or kV adjustment per patient size (includes targeted exa ms where dose is matched to clinical indication); or iterative reconstruction.
== END ==
PROVIDERS: PCP Nurse Practitioner Family; Visit Provider Radiology Radiation Oncology
DX: R91.1 Solitary pulmonary nodule (principal); J44.9 Chronic obstructive pulmonary disease, unspecified; J98.4 Other disorders of lung
CPT/HCPCS: 71250

== ENCOUNTER → 2022-03-11 14:03 | Outpatient (BNVA) | payer MEDICARE, SELFPAY | PROVIDERS: PCP Nurse Practitioner Family; Referring Provider Nurse Practitioner Family; Visit Provider Urology | DX: C67.2 Malignant neoplasm of lateral wall of bladder (principal) | CPT/HCPCS: 99214 ==

== ENCOUNTER 2022-03-11 15:29 | Outpatient (REF) | payer MEDICARE, SELFPAY ==
--- NOTE | 2022-03-11 14:30 | PAPNONF_PTH ---
PATIENT: Pan Reyez LOC: [facility] U#:[id number] AGE/SX: 87/M ROOM: RE03/11/[address]: Say Deng MD : 1935 BED: DIS: 03/11/2022 SPEC #: [id number] RECD: 03/11/22 15:38 STATUS: MICAELA REQ #: [id number] MOSHE: 03/11/22 14:[address]: Say Deng DEPT: [facility] Cytology RECD BY: Gabriela Ragsdale ENTERED: 03/11/22 15:39 SP TYPE: DEE FIELDS DR: Janice Laughlin Tissues: 1 - BODY FLUID CYTO(SPUTUM/URINE)[facility] Procedures: BODY FLUID CYTO(URINE/SPUTUM) Comments: [id number] (TOTAL VOLUME = 80 ml) (40 ml URINE & 40 ml CYTOLYT ADDED IN 2 CONTAINERS)
== END 2022-03-11 15:30 | disposition home or self-care (01) ==
LOC: LBN 15:29
PROVIDERS: PCP Nurse Practitioner Family; Visit Provider Urology
DX: C61 Malignant neoplasm of prostate (principal)
CPT/HCPCS: 88104

== ENCOUNTER → 2022-07-06 14:13 | Outpatient (BNVA) | payer MEDICARE, SELFPAY | PROVIDERS: PCP Nurse Practitioner Family; Referring Provider Nurse Practitioner Family; Visit Provider Nurse Practitioner Gerontology | DX: C67.2 Malignant neoplasm of lateral wall of bladder | CPT/HCPCS: 81003; 99213 ==

== ENCOUNTER 2022-07-06 15:39 | Outpatient (REF) | payer MEDICARE, SELFPAY ==
--- NOTE | 2022-07-06 15:20 | PAPNONF_PTH ---
PATIENT: Pan Reyez LOC: [facility] U#:[id number] AGE/SX: 87/M ROOM: RE07/06/[address]: Madison Sorto DNP : 1935 BED: DIS: 07/06/2022 SPEC #: [id number] RECD: 07/06/22 16:50 STATUS: MICAELA REQ #: [id number] MOSHE: 07/06/22 15:[address]: Madison Sorto DEPT: [facility] Cytology RECD BY: Lucille Condon ENTERED: 07/06/22 16:52 SP TYPE: PAPKARISSAF DIAMOND DR: Janice Laughlin Tissues: 1 - BODY FLUID CYTO(SPUTUM/URINE)[facility] Procedures: BODY FLUID CYTO(URINE/SPUTUM) Comments: [id number] (TOTAL VOLUME URINE = 90cc) (REFRIGERATED) (45 cc URINE & 45 cc CYTOLYT ADDED IN 2 CONTAINERS)
== END 2022-07-06 15:40 | disposition home or self-care (01) ==
LOC: LBN 15:39
PROVIDERS: PCP Nurse Practitioner Family; Visit Provider Nurse Practitioner Gerontology
DX: Z85.51 Personal history of malignant neoplasm of bladder (principal); R82.89 Other abnormal findings on cytological and histological examination of urine
CPT/HCPCS: 88104

== ENCOUNTER → 2022-10-04 10:03 | Outpatient (BNVA) | payer MEDICARE, SELFPAY | PROVIDERS: PCP Nurse Practitioner Family; Referring Provider Nurse Practitioner Family; Visit Provider Urology | DX: C67.2 Malignant neoplasm of lateral wall of bladder (principal) | CPT/HCPCS: 81003; 99213 ==

== ENCOUNTER 2022-10-04 11:03 | Outpatient (REF) | payer MEDICARE, SELFPAY ==
--- NOTE | 2022-10-04 10:30 | PAPNONF_PTH ---
PATIENT: Pan Reyez LOC: [facility] U#:[id number] AGE/SX: 87/M ROOM: RE10/04/[address]: Say Deng MD : 1935 BED: DIS: 10/04/2022 SPEC #: [id number] RECD: 10/04/22 13:06 STATUS: MICAELA REQ #: [id number] MOSHE: 10/04/22 10:[address]: Say Deng DEPT: [facility] Cytology RECD BY: Gabriela Ragsdale ENTERED: 10/04/22 13:06 SP TYPE: DEE FIELDS DR: Janice Laughlin Tissues: 1 - BODY FLUID CYTO(SPUTUM/URINE)[facility] Procedures: BODY FLUID CYTO(URINE/SPUTUM) Comments: [id number] (TV = 55 ml, 30 ml CYTOLYT ADDED) (REFRIGERATED)
== END 2022-10-04 11:04 | disposition home or self-care (01) ==
LOC: LBN 11:03
PROVIDERS: PCP Nurse Practitioner Family; Visit Provider Urology
DX: Z85.51 Personal history of malignant neoplasm of bladder (principal)
CPT/HCPCS: 88104

== ENCOUNTER → 2023-01-06 14:06 | Outpatient (BNVA) | payer MEDICARE, SELFPAY | PROVIDERS: PCP Nurse Practitioner Family; Referring Provider Nurse Practitioner Family; Visit Provider Urology | DX: C67.2 Malignant neoplasm of lateral wall of bladder (principal); J44.9 Chronic obstructive pulmonary disease, unspecified | CPT/HCPCS: 99213 ==

== ENCOUNTER 2023-01-06 15:14 | Outpatient (REF) | payer MEDICARE, SELFPAY ==
--- NOTE | 2023-01-06 15:00 | PAPNONF_PTH ---
PATIENT: Pan Reyez LOC: [facility] U#:[id number] AGE/SX: 87/M ROOM: RE01/06/[address]: Say Deng MD : 1935 BED: DIS: 01/06/2023 SPEC #: [id number] RECD: 01/06/23 16:35 STATUS: MICAELA REBenji #: [id number] MOSHE: 01/06/23 15:[address]: Say Deng DEPT: [facility] Cytology RECD BY: Gabriela Ragsdale ENTERED: 01/06/23 16:35 SP TYPE: DEE FIELDS DR: Janice Laughlin Tissues: 1 - BODY FLUID CYTO(SPUTUM/URINE)[facility] Procedures: BODY FLUID CYTO(URINE/SPUTUM) Comments: [id number] (TV = 40 ml, 30 ml CYTOLYT ADDED) (REFRIGERATED)
== END 2023-01-06 15:15 | disposition home or self-care (01) ==
LOC: LBN 15:14
PROVIDERS: PCP Nurse Practitioner Family; Visit Provider Urology
DX: R82.89 Other abnormal findings on cytological and histological examination of urine (principal); Z85.51 Personal history of malignant neoplasm of bladder
CPT/HCPCS: 88104

== ENCOUNTER → 2023-07-28 13:48 | Outpatient (BNVA) | payer MEDICARE, SELFPAY | PROVIDERS: PCP Nurse Practitioner Family; Referring Provider Nurse Practitioner Family; Visit Provider Urology | DX: C67.2 Malignant neoplasm of lateral wall of bladder (principal) | CPT/HCPCS: 99213 ==

== ENCOUNTER 2023-07-28 16:56 | Outpatient (REF) | payer MEDICARE, SELFPAY ==
--- NOTE | 2023-07-28 14:25 | PAPNONF_PTH ---
PATIENT: Pan Reyez LOC: [facility] U#:[id number] AGE/SX: 88/M ROOM: RE07/28/[address]: Say Deng MD : 1935 BED: DIS: 07/28/2023 SPEC #: [id number] RECD: 07/28/23 17:03 STATUS: MICAELA REBenji #: [id number] MOSHE: 07/28/23 14:[address]: Say Deng DEPT: [facility] Cytology RECD BY: Gabriela Ragsdale ENTERED: 07/28/23 17:03 SP TYPE: DEE FIELDS DR: Janice Laughlin Tissues: 1 - BODY FLUID CYTO(SPUTUM/URINE)[facility] Procedures: BODY FLUID CYTO(URINE/SPUTUM) Comments: [id number] (TV=35 ml, 30 ml CYTOLYT ADDED) (REFRIGERATED)
== END 2023-07-28 16:57 | disposition home or self-care (01) ==
LOC: LBN 16:56
PROVIDERS: PCP Nurse Practitioner Family; Visit Provider Urology
DX: Z85.51 Personal history of malignant neoplasm of bladder (principal); R82.998 Other abnormal findings in urine
CPT/HCPCS: 88104

== ENCOUNTER 2023-11-30 15:17 | Emergency (ER) | payer MEDICARE, SELFPAY ==
[2023-11-30 15:25] VITALS: BP 117/61; PULSE 102; RESP 18; TEMP 37.6; O2SAT 95
--- NOTE | 2023-11-30 16:49 | ED.GENADUL_ITS ---
Discharge Plan Disposition Patient Disposition: Home Condition: Fair Discharge Details Clinical Impression: Metastasis to liver, Nausea and vomiting Primary Care Provider: Janice Laughlin ED Provider: Ousmane Murphy Home Meds and New Rx's Prescriptions: New ondansetron 4 mg tablet,disintegrating 4 mg PO Q8H PRNQty: 30 0RF Continued metoprolol succinate 100 mg tablet extended release 24 hr 50 mg PO DAILY losartan 100 MG tablet 100 mg PO DAILY atorvastatin 20 mg Tablet 20 mg PO QHS amlodipine 5 mg Tablet 5 mg PO DAILY nitroglycerin [Nitrostat] 0.4 mg Tablet, Sublingual 0.4 mg SUBLINGUAL Q5-15M PRN vit C,G-Yv-ulurd-lutein-zeaxan 250-90-40-1 mg capsule 1 tab PO DAILY acetaminophen 500 mg Tablet 1,000 mg PO Q6H PRN Discharge Instructions Instructions: Ondansetron (By mouth), Biliary Colic (ED), Acute Nausea and Vomiting (ED) Additional Instructions: You were seen in the emergency department for your nausea and vomiting, weight loss, weakness. You have known bladder cancer. You had symptoms suspicious for pathology of the biliary tree which includes the pancreas, liver and gallbladder. On a CT scan without contrast of your abdomen we found diffuse spread of your likely primary bladder cancer to the liver, right adrenal gland, and many enlarged lymph nodes in this area. This is likely the source of your nausea and vomiting. I discussed further testing like ultrasound of the abdomen on an outpatient basis or the need for an MRI of the abdomen to evaluate any mass effect on your common bile duct. You have mildly elevated white blood cell count which can be a result of vomiting, we provided you with IV fluids as well as an antinausea medicine to take 20 to 30 minutes before attempting nutrition and hydration by mouth. Your liver enzymes are elevated I did discuss with you the possibility of presenting her case to our hospitalist service for admission to the hospital for intractable nausea and vomiting in the setting of likely metastasis of cancer. You stated that you wanted to be discharged home and that you wish to follow-up on outpatient basis, I will provide referral to palliative care service. Please return to the ED for worsening intractable nausea and vomiting, any fainting spells, chest pain, fevers, severe weakness or any other emergent concerns. Referrals: Mayra Holguin NP [NURSE PRACTITIONER] - Janice Laughlin [Primary Care Provider] - Enriqueta Tijerina MD [ [facility] STAFF PHYSICIAN] - HPI General Date/Time Provider Initiated Documentation: 11/30/23 15:41 . HPI Narrative: 88 year-old male presents to ED today by POV/ambulating with a chief complaint of nausea and vomiting, some gastric/RUQ pain a couple hours after eating, weight loss ove rmonths- has known bladder CA, seen by Dr. Deng, with onset chronically- patient does not frequently go to the hospital. Here with his common law partner Elaine Gonzales. Quality described as epigastric/RUQ pain, sometimes has burning hunger pains, endorses diarrhea- denies black/bloody stools, no radiation to chest pain, shortness of breath, headache, fever, cough. Severity is described as severe. Palliating factors include nothing specific- has been able to keep down poached eggs with some regularity. Provoking factors include nothing specific. Patient not anticoagulated. Related Data Home Medications Medication Instructions Recorded Confirmed losartan 100 mg tablet 100 mg PO DAILY 01/13/14 11/30/23 amlodipine 5 mg tablet 5 mg PO DAILY 09/19/18 11/30/23 atorvastatin 20 mg tablet 20 mg PO QHS 09/19/18 11/30/23 nitroglycerin 0.4 mg sublingual 0.4 mg sublingual Q5-15M PRN 09/19/18 11/30/23 tablet (Nitrostat) acetaminophen 500 mg tablet 1,000 mg PO Q6H PRN 02/23/21 11/30/23 metoprolol succinate 100 mg 50 mg PO DAILY 04/22/21 11/30/23 tablet,extended release 24 hr vit C 250 mg-vit E 90 mg-zinc 40 1 tab PO DAILY 04/22/21 11/30/23 mg-copper 1 en-eabbmk-vxnbpz capsule ondansetron 4 mg disintegrating 4 mg PO Q8H PRN #30 tabs 11/30/23 tablet Previous Rx's Medication Instructions Recorded ondansetron 4 mg disintegrating 4 mg PO Q8H PRN #30 tabs 11/30/23 tablet Allergies Allergy/AdvReac Type Severity Reaction Status Date / Time Iodinated Contrast Media AdvReac Intermediate Dizzy, Verified 11/30/23 16:56 [Iodinated Contrast- Oral stomach and IV Dye] burning Sulfa (Sulfonamide AdvReac Unknown Other (See Verified 11/30/23 16:56 Antibiotics) Comment) General Stated Complaint: Abd Prob TERENCE: 3 Review of Systems All systems reviewed & are unremarkable except as noted in HPI and below Exam Narrative Exam Narrative: GENERAL APPEARANCE: Mal-nourished, non-toxic, awake and alert, atraumatic, no acute distress. SKIN: Warm, pink, dry, intact, without rashes/lesions/ulcerations. HEAD: Normocephalic, atraumatic, normal hair distribution for gender/age. EYES: Normal conjunctiva, no exudates on lids/lashes. ENT: Nares patent, no circumoral cyanosis, no facial swelling, oral mucosa semi- dry NECK: Supple, trachea midline, painless cervical ROM. LUNGS/CHEST: Lungs CTA bilaterally- no rhonchi/rales/wheezes diffusely, non- labored respirations, normal A/P diameter, symmetrical expansion, no chest wall deformity HEART (CV/PV): Regular rate and rhythm without murmur, no peripheral edema, no JVD. ABDOMEN: Soft, non-distended, no guarding, epigastric tenderness, RUQ tenderness, no overt Blake's sign, no Rovsing's. MSK: Normal ROM, no swelling/deformity to bilateral UEs or LEs, moving all extremities without weakness, no cyanosis, spine midline without tenderness, normal curvature. NEURO: Mental Status AAOx4 - alert to person, place, time, events No facial droop, no forehead involvement. Motor: No focal weakness - strength 5/5 in bilateral UEs and LEs, proximal and distal, symmetric. Sensory: sensation intact to light touch globally. Gait normal: patient ambulated without ataxia into ED room. PSYCH: euthymic, cooperative, pleasant, appropriate speech Course Vital Signs Vital signs: Vital Signs Temperature 37.6 C H 11/30/23 15:25 Pulse 102 H 11/30/23 15:25 Respiratory Rate 18 11/30/23 15:25 Blood Pressure 117/61 11/30/23 15:25 Pulse Oximetry 95 11/30/23 15:25 Temperature 37.6 C H 11/30/23 15:25 Temperature Source Skin 11/30/23 15:25 Pulse 102 H 11/30/23 15:25 Respiratory Rate 18 11/30/23 15:25 Respiratory Effort Normal 11/30/23 16:47 Blood Pressure 117/61 11/30/23 15:25 Blood Pressure Position Sitting 11/30/23 15:25 Pulse Oximetry 95 11/30/23 15:25 Oxygen Delivery Method Room Air 11/30/23 15:25 Oxygen Flow Rate 0 11/30/23 15:25 Medical Decision Making This dictation utilizes [id number] dictation software and may contain unedited grammatical errors. 88 y/o M presents to ED today with a chief complaint of weight loss, RUQ pain/epigastric pain after eating, nausea and vomiting, diarrhea, history of bladder CA. Denies fever, chest pain, shortness of breath, severe headache. Patients' medical history: Bladder cancer, history of ME, hypertension, high cholesterol, aortic aneurysm. Family and social history: Lives with his spouse at home, no exercise, poor diet. Pertinent exam findings / vital signs include malnourished and cachectic, no respiratory distress, nontoxic vitals, epigastric tenderness. Differential / pathologies of concern include progression of cancer, biliary colic, gastritis, pud or duodenal ulcer, intractable nausea and vomiting. Diagnostic studies of: -CBC, BMP, Lactate, Procalcitonin, Liver Panel, Lipase, UA, CT ABD/Pelvis wo Contrast (dye allergy). -CBC shows mild leukocytosis -BMP shows mild JW -Lactate neg, procal 0.6 nonspecific -Liver Panel shows elevated LFTs > discussed with patient for possible admission- he does not want treatment -Lipase WNL -UA not given -CT shows innumerable mets to liver, mets to adrenal gland, no SBO, no evidence of choledocho Interventions of: -Zofran to go, 1L LR given. ED Course/Assessment/Plan: I counseled the patient on the progression of his cancer with innumerable metastatic tumors to his liver as well as his adrenal gland, a counseled him that this is the likely cause of his nausea and vomiting and weakness. As well as his weight loss. The patient was somewhat distraught but his goal is not to treat this. He threatened to leave the ER and did not want further studies done while the liver panel was still pending, that showed significant elevation I did discuss with him that we could possibly admit him for intractable nausea and vomiting and to perform a possible MRCP to rule out any obstructive biliary pathology from mass effect but the patient wished to be discharged home. With his goals of care I do not believe this is AGAINST MEDICAL ADVICE, the patient was exhibiting no severe pain or intractable nausea vomiting while in the department, he wanted to try antiemetic pills, I counseled him and his partner Elaine Gonzales that I would refer them to palliative care. Findings not consistent with sepsis, choledocholithiasis. Disposition of Metastasis to Liver, Nausea and Vomiting. Patient verbalized understanding of the plan and return to ED criteria and engaged in shared decision making. Medical Records Medical records reviewed: Yes I reviewed the patient's medical records. Imaging Data Radiologic Study: Attestation: I personally reviewed and interpreted this imaging study as follows: Imaging: CT Scan Radiologist's impression: EXAM: CT ABDOMEN PELVIS WO CLINICAL HISTORY: RUQ tenderness, known cancer-bladder. TECHNIQUE: Imaging Protocol: Axial computed tomography images with coronal and sagittal reformatted images were created and reviewed. Oral: / no COMPARISON: 01 March 2021 FINDINGS: Exam is limited by lack of oral and IV contrast and lack of intra-abdominal fat. Lung Bases: No acute findings. Emphysematous changes. Liver: Normal density. Innumerable low-density ill-defined masses consistent with metastatic disease. Small amount of fluid surrounding liver. Gallbladder and biliary tract: No radiodense calculus or biliary dilation. Pancreas: Normal density, no abnormal calcifications or inflammatory process. Spleen: Normal. Kidneys: Normal size, contour and axis. No radiodense stones or obstructive uropathy. No suspicious masses seen. Bilateral renal cysts again noted. Adrenal glands: Thickening of the right adrenal gland, new from the prior exam, suspicious for metastasis. Lymph nodes: Bulky para-aortic adenopathy. Vasculature: Aorta bi-iliac stents again noted. Soft tissues: Right inguinal hernia now contains fluid. Bladder: No wall thickening. No mass or calculi. Bowel: No obstruction or small bowel wall thickening. Extensive diverticulosis. No evidence of diverticulitis. Peritoneal cavity: Trace ascites. No focal collection or mesenteric inflammatory response. No free air. Reproductive organs: Prostate is enlarged and impresses upon base of bladder. Bones: Degenerative changes in the spine. No lytic or blastic lesions identified. IMPRESSION: Enlarged liver with innumerable metastatic lesions. Innumerable abnormally enlarged retroperitoneal lymph nodes. Right adrenal metastasis. Extensive diverticulosis. No evidence of diverticulitis. Findings called to Ousmane Murphy, ER provider. Lab Data Lab results reviewed: Yes I reviewed the patient's lab results. Labs: 11/30/23 17:42 Blood Blood Culture - Pending 11/30/23 17:15 Blood Blood Culture - Pending Laboratory Tests Range/Units 11/30/23 11/30/23 16:40 19:30 WBC (4.4-10.8) 10^3/uL 14.20 H RBC (4.36-5.78) 10^6/uL 4.78 Hgb (13.5-17.5) g/dL 14.7 Hct (40.0-50.0) % 45.0 MCV (80-95) fL 94 MCH (27.0-33.0) pg 30.8 MCHC (32.0-36.0) % 32.7 RDW (11.8-14.1) % 14.9 H Plt Count (130-400) 10^3/uL 240 MPV (8.0-11.0) fL 10.1 Immature Gran % % 0.0 Neutrophils % % 87.0 Lymphocytes % % 6.0 Monocytes % % 7.0 Eosinophils % % 0.0 Basophils % % 0.0 Nucleated RBC % (0.0-0.3) % 0.0 Absolute Neutrophils (1.2-6.7) 10^3/uL 12.35 H Absolute Lymphocytes (1.2-3.4) 10^3/uL 0.85 L Absolute Monocytes (0.1-0.8) 10^3/uL 0.99 H Absolute Eosinophils (0.0-0.7) 10^3/uL 0.00 Absolute Basophils (0.0-0.2) 10^3/uL 0.00 RBC Morphology Normal VBG Lactate (0.6-1.4) mmol/L 1.8 H Sodium (136-145) mmol/L 139 Potassium (3.5-5.1) mmol/L 4.6 Chloride (98-107) mmol/L 101 Carbon Dioxide (21.0-32.0) mmol/L 30.6 Anion Gap (3-11) mmol/L 7.4 BUN (7-18) mg/dL 47 H Creatinine (0.70-1.30) mg/dL 1.6 H Est GFR (CKD-EPI 2020) (mL/min/1.73m2) 41.44 Glucose (74-106) mg/dL 108 H Calcium (8.5-10.1) mg/dL 9.2 Magnesium (1.8-2.4) mg/dL 1.8 Total Bilirubin (0.2-1.0) mg/dL 1.2 H Conjugated Bilirubin (0.0-0.2) mg/dL 0.6 H AST (15-37) U/L 142 H ALT (16-63) U/L 75 H Alkaline Phosphatase (46-116) U/L 464 H Troponin I (< or =60) ng/L < 50 NT-Pro-B Natriuret Pep (<300) pg/mL 2289 H Total Protein (6.4-8.2) g/dL 6.8 Albumin (3.4-5.0) g/dL 2.7 L Lipase (16-77) U/L 65 Procalcitonin ng/mL 0.6 Quality:SDOH Health Related Social Needs: No Data to Display PFSH All Active Problems (Updated 05/27/21 @ 15:21 by Say Deng MD) Nausea and vomiting (Acute) Metastasis to liver (Acute) Bladder cancer (Acute) Abdominal pain (Acute) Amblyopia of 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, dry, 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, wet, left eye (Chronic) Status post cataract extraction and insertion of intraocular lens of right eye (Chronic 12/10/18) Medical History (Updated 11/30/23 @ 20:43 by BONNIE Oro) Gross hematuria Myocardial infarction Glaucoma Bleeding OS per Pt Cataract Hypertension High cholesterol Coronary artery disease Aortic aneurysm Surgical History (Updated 05/27/21 @ 15:21 by Say Deng MD) H/O transurethral destruction of bladder lesion History of coronary artery stent placement History of tonsillectomy Social History Smoking/Tobacco Use Status: Former Tobacco Use Smoking risk assessment performed?: Yes Alcohol Intake: never Drug use: Never Substance use type: does not use Details: Quit smoking 2006 Housing: house Do you feel safe at home: Yes Do you feel safe in your relationship?: Yes
--- NOTE | 2023-11-30 17:15 | DI.CT_ITS ---
Exam(s) CT ABDOMEN PELVIS WO EXAM: CT ABDOMEN PELVIS WO CLINICAL HISTORY: RUQ tenderness, known cancer-bladder. TECHNIQUE: Imaging Protocol: Axial computed tomography images with coronal and sagittal reformatted images were created and reviewed. Oral: / no COMPARISON: 01 March 2021 FINDINGS: Exam is limited by lack of oral and IV contrast and lack of intra-abdominal fat. Lung Bases: No acute findings. Emphysematous changes. Liver: Normal density. Innumerable low-density ill-defined masses consistent with metastatic disease. Small amount of fluid surrounding liver. Gallbladder and biliary tract: No radiodense calculus or biliary dilation. Pancreas: Normal density, no abnormal calcifications or inflammatory process. Spleen: Normal. Kidneys: Normal size, contour and axis. No radiodense stones or obstructive uropathy. No suspicious m asses seen. Bilateral renal cysts again noted. Adrenal glands: Thickening of the right adrenal gland, new from the prior exam, suspicious for metast asis. Lymph nodes: Bulky para-aortic adenopathy. Vasculature: Aorta bi-iliac stents again noted. Soft tissues: Right inguinal hernia now contains fluid. Bladder: No wall thickening. No mass or calculi. Bowel: No obstruction or small bowel wall thickening. Extensive diverticulosis. No evidence of div erticulitis. Peritoneal cavity: Trace ascites. No focal collection or mesenteric inflammatory response. No free air. Reproductive organs: Prostate is enlarged and impresses upon base of bladder. Bones: Degenerative changes in the spine. No lytic or blastic lesions identified. IMPRESSION: Enlarged liver with innumerable metastatic lesions. Innumerable abnormally enlarged retroperitoneal lymph nodes. Right adrenal metastasis. Extensive diverticulosis. No evidence of diverticulitis. Findings called to Ousmane Murphy, ER provider. RADIATION DOSE DELIVERED: 473.94mGy.cm Total DLP DATA REPOSITORY: All CT scans at this facility are submitted to the National Radiology Data Registry (NRDR) Dose Index Registry (DIR) with the [employer] (ACR). RADIATION OPTIMIZATION: All CT scans at this facility use at least one of these dose optimization te chniques: automated exposure control; mA and/or kV adjustment per patient size (includes targeted exa ms where dose is matched to clinical indication); or iterative reconstruction.
[2023-11-30 17:21] LABS: HGB 14.7 g/dL (13.5-17.5); MCH 30.8 pg (27.0-33.0); MCHC 32.7 % (32.0-36.0); MCV 94 fL (80-95); MPV 10.1 fL (8.0-11.0); Platelet Count 240 10^3/uL (130-400); RBC 4.78 10^6/uL (4.36-5.78); RDW 14.9 % (11.8-14.1); RDW-SD 51.8 fL
[2023-11-30 17:40] LABS: Anion Gap 7.4 mmol/L (3-11); BUN 47 mg/dL (7-18); CO2 30.6 mmol/L (21.0-32.0); CREATININE 1.6 mg/dL (0.70-1.30); Calcium 9.2 mg/dL (8.5-10.1); Chloride 101 mmol/L (98-107); Estimated GFR 41.44 (mL/min/1.73m2); Glucose 108 mg/dL (74-106); Lipase 65 U/L (16-77); Magnesium 1.8 mg/dL (1.8-2.4); NT-proBNP 2289 pg/mL (<300); Potassium 4.6 mmol/L (3.5-5.1); Sodium 139 mmol/L (136-145); Troponin I < 50 ng/L (< or =60)
[2023-11-30 17:45] LABS: Absolute Lymphocyte Count 0.85 10^3/uL (1.2-3.4); Absolute Monocyte Count 0.99 10^3/uL (0.1-0.8); Absolute Neutrophil Count 12.35 10^3/uL (1.2-6.7)
[2023-11-30 17:46] LABS: Diff Comment Diff Reviewed; RBC Morphology Normal
[2023-11-30 19:33] LABS: Lactate 1.8 mmol/L (0.6-1.4)
[2023-11-30 19:51] LABS: ALT 75 U/L (16-63); AST 142 U/L (15-37); Albumin 2.7 g/dL (3.4-5.0); Alkaline Phosphatase 464 U/L (46-116); Bilirubin, Direct 0.6 mg/dL (0.0-0.2); Bilirubin, Total 1.2 mg/dL (0.2-1.0); Total Protein 6.8 g/dL (6.4-8.2)
[2023-11-30] MEDS: Lactated Ringers 1,000 ML 1000 ML IV (19:53)
[2023-11-30 20:27] LABS: Procalcitonin 0.6 ng/mL
[2023-11-30] MEDS: Ondansetron O.D.T. 4 MG TABEF, 3 TABS/BTL PO (20:46)
[2023-11-30 20:49] VITALS: BP 120/59; PULSE 92; RESP 16; TEMP 36.9; O2SAT 96
== END 2023-11-30 20:51 | disposition home or self-care (01) ==
PROVIDERS: Emergency Provider Physician Assistant; PCP Nurse Practitioner Family
DX: R11.2 Nausea with vomiting, unspecified (principal); R63.4 Abnormal weight loss; C67.9 Malignant neoplasm of bladder, unspecified; C78.7 Secondary malignant neoplasm of liver and intrahepatic bile duct; C77.2 Secondary and unspecified malignant neoplasm of intra-abdominal lymph nodes; C79.71 Secondary malignant neoplasm of right adrenal gland; I25.10 Atherosclerotic heart disease of native coronary artery without angina pectoris; I25.2 Old myocardial infarction; I10 Essential (primary) hypertension; E78.00 Pure hypercholesterolemia, unspecified; Z79.899 Other long term (current) drug therapy
CPT/HCPCS: 36415; 80048; 80076; 83690; 84145; 87040; 96360; 99284; 74176; 81003; 83605; 83735; 83880; 84484; 85025